=== PATIENT | male | born 1930 | race Caucasian/White ===

== ENCOUNTER 2016-03-10 12:13 | Inpatient (IN) | payer MEDICARE ==
[2016-03-10] MEDS ORDERED: IPRATROPIUM-ALBUTEROL 3 ML NEB INHALATION STA (12:34)
--- NOTE | 2016-03-10 12:37 | ED ---
SOB HPI - General Chief Complaint: Shortness of Breath Stated Complaint: SOB Time Seen by Provider: 03/10/16 12:25 Source: patient, RN notes reviewed Mode of arrival: wheelchair - History of Present Illness Initial Comments: This is a 5-year-old male with a history of multiple medical problems which do not however include COPD or lung issues who was brought in for evaluation for progressively worsening shortness of breath over last couple weeks. 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 While at rest right now he feels about normal he denies any history of peripheral edema he has no known history to toxic exposures. MD Complaint: shortness of breath, cough - Related Data Home Medications Medication Instructions Recorded Confirmed Calcium Carbonate [Calcium] 1,200 mg PO DAILY 10/05/15 03/10/16 Carvedilol [Coreg] 12.5 mg PO BID 10/05/15 03/10/16 Cholecalciferol [Vitamin D3] 2,000 unit PO DAILY 10/05/15 03/10/16 Levothyroxine Sodium [Synthroid] 75 mcg PO DAILY 10/05/15 03/10/16 Lisinopril [Zestril] 2.5 mg PO DAILY 10/05/15 03/10/16 Lovastatin [Mevacor] 20 mg PO HS 10/05/15 03/10/16 Lutein 10 mg PO DAILY 10/05/15 03/10/16 Multivitamins, Thera [Multivitamin] 1 tab PO DAILY 10/05/15 03/10/16 Ubidecarenone [Co Q-10] 400 mg PO DAILY 10/05/15 03/10/16 Vit C/E/Zn/Coppr/Lutein/Zeaxan 2 cap PO DAILY 10/05/15 03/10/16 [Preservision Areds 2 Softgel] Acetaminophen Tab [Tylenol Tab] 325 - 650 mg PO Q6H PRN 03/10/16 03/10/16 Donepezil [Aricept] 10 mg PO DAILY 03/10/16 03/10/16 Ferrous Sulfate [Feosol] 325 mg PO DAILY 03/10/16 03/10/16 Previous Rx's Medication Instructions Recorded Omeprazole 20 mg PO DAILY #30 cap 10/07/15 Allergies Allergy/AdvReac Type Severity Reaction Status Date / Time No Known Allergies Allergy Verified 03/10/16 13:23 Review of Systems ROS Statement: Those systems with pertinent positive or pertinent negative responses have been documented in the HPI. ROS Other: All systems not noted in ROS Statement are negative. Past Medical History Past Medical History: Atrial Fibrillation, Cancer, Chest Pain / Angina, GERD/ Reflux, Hyperlipidemia, Memory Impairment, Osteoarthritis (OA), Pneumonia, Thyroid Disorder Additional Past Medical History / Comment(s): Bladder CA- BCG tx given, prostate cancer 2005-radiation only, History of Any Multi-Drug Resistant Organisms: None Reported Past Surgical History: Bowel Resection, Heart Catheterization, Hernia Repair, Pacemaker Additional Past Surgical History / Comment(s): 2011 umbilical hernia repair, cataracts,ann inguinal hernia repair.macular hole repair, lt hip repalced, colonoscopy, rt knee replaced 2010. Past Anesthesia/Blood Transfusion Reactions: No Reported Reaction Additional Past Anesthesia/Blood Transfusion Reaction / Comment(s): blood transfusion 2011-no reaction Type of Cardiac Device: Permanent Pacemaker Device Placement Date:: 2012 Past Psychological History: Depression Additional Psychological History / Comment(s): occ mild depression but currently denies any depression or thoughts of harming self. Smoking Status: Never smoker Past Alcohol Use History: Occasional Past Drug Use History: None Reported - Past Family History Father Family Medical History: Cancer Additional Family Medical History / Comment(s): bladder cancer.lived to be age 94 Mother Family Medical History: Dementia Additional Family Medical History / Comment(s): lived to be 97 General Exam - General Exam Comments Initial Comments: This is a well-developed well-nourished awake alert oriented times 3 male General appearance: alert, in no apparent distress Head exam: Present: atraumatic, normocephalic, normal inspection Eye exam: Present: normal appearance, PERRL, EOMI. Absent: scleral icterus, conjunctival injection, periorbital swelling ENT exam: Present: normal exam, mucous membranes moist Neck exam: Present: normal inspection. Absent: tenderness, meningismus, lymphadenopathy Respiratory exam: Present: decreased breath sounds. Absent: respiratory distress, wheezes, rales, rhonchi, stridor Cardiovascular Exam: Present: regular rate, normal rhythm, normal heart sounds. Absent: systolic murmur, diastolic murmur, rubs, gallop, clicks GI/Abdominal exam: Present: soft, normal bowel sounds. Absent: distended, tenderness, guarding, rebound, rigid Extremities exam: Present: full ROM, normal capillary refill, pedal edema. Absent: tenderness, joint swelling, calf tenderness Back exam: Present: normal inspection Neurological exam: Present: alert, oriented X3, CN II-XII intact Psychiatric exam: Present: normal affect, normal mood Skin exam: Present: warm, dry, intact, normal color. Absent: rash Course Vital Signs 03/10/16 03/10/16 03/10/16 12:16 12:45 12:50 Temperature 97.1 F L Pulse Rate 92 76 81 Respiratory 20 16 Rate Blood Pressure 125/80 111/68 O2 Sat by Pulse 92 L 93 L Oximetry 03/10/16 03/10/16 03/10/16 12:54 13:53 14:19 Temperature 97.3 F L 97.8 F Pulse Rate 80 79 77 Respiratory 16 16 Rate Blood Pressure 122/78 111/62 O2 Sat by Pulse 89 L 93 L Oximetry 03/10/16 14:45 Temperature Pulse Rate 72 Respiratory 16 Rate Blood Pressure 107/72 O2 Sat by Pulse 92 L Oximetry - Reevaluation(s) Reevaluation #1: 03/10/16 16:21 I did reevaluate the patient did get some improvement. Reevaluation #2: 03/10/16 16:22 I did discuss findings with the patient has . He is demonstrating some improvement Medical Decision Making - Medical Decision Making I did discuss the findings with the patient has patient will be admitted I did discuss case with the hospitalist covering his doctor. Cardiology will be consulted. - Lab Data Result diagrams: 03/10/16 12:50 03/10/16 12:50 Lab Results 03/10/16 03/10/16 03/10/16 Range/Units 12:50 12:50 12:50 WBC 8.2 (3.8-10.6) k/uL RBC 4.67 (4.30-5.90) m/uL Hgb 13.4 (13.0-17.5) gm/dL Hct 42.5 (39.0-53.0) % MCV 90.9 (80.0-100.0) fL MCH 28.6 (25.0-35.0) pg MCHC 31.5 (31.0-37.0) g/dL RDW 17.5 H (11.5-15.5) % Plt Count 246 (150-450) k/uL Neutrophils % 77 % Lymphocytes % 14 % Monocytes % 6 % Eosinophils % 1 % Basophils % 1 % Neutrophils # 6.3 (1.3-7.7) k/uL Lymphocytes # 1.1 (1.0-4.8) k/uL Monocytes # 0.5 (0-1.0) k/uL Eosinophils # 0.0 (0-0.7) k/uL Basophils # 0.0 (0-0.2) k/uL Anisocytosis Slight PT (9.0-12.0) sec INR (<1.1) APTT (22.0-30.0) sec D-Dimer (<0.60) mg/L FEU Sodium 143 (137-145) mmol/L Potassium 5.1 (3.5-5.1) mmol/L Chloride 106 (98-107) mmol/L Carbon Dioxide 25 (22-30) mmol/L Anion Gap 12 mmol/L BUN 27 H (9-20) mg/dL Creatinine 1.00 (0.66-1.25) mg/dL Est GFR (MDRD) Af Amer >60 (>60 ml/min/1.73 sqM) Est GFR (MDRD) Non-Af >60 (>60 ml/min/1.73 sqM) Glucose 99 (74-99) mg/dL Calcium 9.5 (8.4-10.2) mg/dL Magnesium 2.0 (1.6-2.3) mg/dL Total Bilirubin 0.7 (0.2-1.3) mg/dL AST 27 (17-59) U/L ALT 33 (21-72) U/L Alkaline Phosphatase 54 (38-126) U/L Total Creatine Kinase 45 L (55-170) U/L CK-MB (CK-2) 1.4 (0.0-2.4) ng/mL CK-MB (CK-2) Rel Index 3.1 Troponin I 0.017 (0.000-0.034) ng/mL NT-Pro-B Natriuret Pep pg/mL Total Protein 7.4 (6.3-8.2) g/dL Albumin 4.4 (3.5-5.0) g/dL 03/10/16 03/10/16 Range/Units 12:50 12:50 WBC (3.8-10.6) k/uL RBC (4.30-5.90) m/uL Hgb (13.0-17.5) gm/dL Hct (39.0-53.0) % MCV (80.0-100.0) fL MCH (25.0-35.0) pg MCHC (31.0-37.0) g/dL RDW (11.5-15.5) % Plt Count (150-450) k/uL Neutrophils % % Lymphocytes % % Monocytes % % Eosinophils % % Basophils % % Neutrophils # (1.3-7.7) k/uL Lymphocytes # (1.0-4.8) k/uL Monocytes # (0-1.0) k/uL Eosinophils # (0-0.7) k/uL Basophils # (0-0.2) k/uL Anisocytosis PT 11.0 (9.0-12.0) sec INR 1.1 (<1.1) APTT 24.3 (22.0-30.0) sec D-Dimer 0.65 H (<0.60) mg/L FEU Sodium (137-145) mmol/L Potassium (3.5-5.1) mmol/L Chloride (98-107) mmol/L Carbon Dioxide (22-30) mmol/L Anion Gap mmol/L BUN (9-20) mg/dL Creatinine (0.66-1.25) mg/dL Est GFR (MDRD) Af Amer (>60 ml/min/1.73 sqM) Est GFR (MDRD) Non-Af (>60 ml/min/1.73 sqM) Glucose (74-99) mg/dL Calcium (8.4-10.2) mg/dL Magnesium (1.6-2.3) mg/dL Total Bilirubin (0.2-1.3) mg/dL AST (17-59) U/L ALT (21-72) U/L Alkaline Phosphatase (38-126) U/L Total Creatine Kinase (55-170) U/L CK-MB (CK-2) (0.0-2.4) ng/mL CK-MB (CK-2) Rel Index Troponin I (0.000-0.034) ng/mL NT-Pro-B Natriuret Pep 7450 pg/mL Total Protein (6.3-8.2) g/dL Albumin (3.5-5.0) g/dL - EKG Data -: EKG Interpreted by Me (Pacer rhythm of 77 ND interval to 16 QRS duration of 202 daily since QTC of) - Radiology Data Radiology results: report reviewed (I did review the imaging and report or is evidence cardiomegaly and CHF.), image reviewed Critical Care Time Critical Care Time: Yes Critical Care Time: 32 minutes of critical care time which includes initial encounter with history physical lab and x-ray orders reevaluation the patient response to therapy reevaluation of lab and x-ray results. Discussion with the patient has regarding findings discussion with the admitting physician. Admission orders and documentation of the above. Disposition Clinical Impression: Congestive heart failure, Acute exacerbation of chronic obstructive airways disease Disposition: ADMITTED IP TO THIS HOSP Condition: Stable
[2016-03-10 13:15] LABS: Anisocytosis Slight; Basophils % (A) 1 %; CH 28.7; CHCM 31.8; Eosinophils % (A) 1 %; HCT 42.5 % (39.0-53.0); HDW 2.57; HGB 13.4 gm/dL (13.0-17.5); Luc # (Auto) 0.16; Luc % (Auto) 2; Lymphocytes # (A) 1.1 k/uL (1.0-4.8); Lymphocytes % (A) 14 %; MCH 28.6 pg (25.0-35.0); MCHC 31.5 g/dL (31.0-37.0); MCV 90.9 fL (80.0-100.0); Mean Platelet Volume 9.2; Monocytes # (A) 0.5 k/uL (0-1.0); Monocytes % (A) 6 %; Neutrophils # (A) 6.3 k/uL (1.3-7.7); Neutrophils % (A) 77 %; RBC 4.67 m/uL (4.30-5.90); RDW 17.5 % (11.5-15.5); WBC 8.2 k/uL (3.8-10.6); WBC (Perox) 8.02
[2016-03-10 13:16] LABS: ALT 33 U/L (21-72); AST 27 U/L (17-59); Alkaline Phosphatase 54 U/L (38-126); Anion Gap 12 mmol/L; Blood Urea Nitrogen 27 mg/dL (9-20); Calcium 9.5 mg/dL (8.4-10.2); Carbon Dioxide 25 mmol/L (22-30); Chloride 106 mmol/L (98-107); Glucose 99 mg/dL (74-99); Non-African American GFR(MDRD) >60 (>60 ml/min/1.73 sqM); Potassium 5.1 mmol/L (3.5-5.1); Sodium 143 mmol/L (137-145); Total Bilirubin 0.7 mg/dL (0.2-1.3); Total Protein 7.4 g/dL (6.3-8.2)
[2016-03-10 13:20] LABS: INR 1.1 (<1.1); Partial Thromboplastin Time 24.3 sec (22.0-30.0)
--- NOTE | 2016-03-10 13:25 | XR ---
EXAMINATION TYPE: XR chest 2V DATE OF EXAM: 03/10/2016 1:17 PM COMPARISON: Prior chest x-ray November 18, 2012 HISTORY: Shortness of breath TECHNIQUE: Frontal and lateral views of the chest are obtained. FINDINGS: There is background of chronic emphysematous change. There is persistent cardiomegaly with new dual lead pacemaker with leads in right atrium and right ventricle. There is new moderate central vascular congestion and small bilateral pleural effusions. There is associated bibasilar atelectasis and/or infiltrate. There is atherosclerotic and ectatic thoracic aorta redemonstrated. Osseous struc tures are somewhat demineralized. IMPRESSION: Suspect CHF exacerbation as there is cardiomegaly with new mild to moderate central vasc ular congestion and small bilateral pleural effusions now present..
[2016-03-10 13:48] LABS: Creatine Kinase MB 1.4 ng/mL (0.0-2.4); Troponin I 0.017 ng/mL (0.000-0.034)
[2016-03-10] MEDS ORDERED: FUROSEMIDE 10 MG/ML 4 ML VIAL IV STA (14:18)
[2016-03-10] MEDS: SODIUM CHLORIDE 0.9% 1,000 ML IV SCH (18:01)
[2016-03-10] MEDS ORDERED: ALPRAZolam 0.25 MG TAB PO PRN (18:52)
[2016-03-10] MEDS ORDERED: HYDROcodone/APAP 5-325MG 1 EACH TAB PO PRN (18:52)
[2016-03-10] MEDS ORDERED: ACETAMINOPHEN TAB 325 MG TAB PO PRN (18:53)
[2016-03-10] MEDS: CARVEDILOL 12.5 MG TAB PO SCH (18:58)
[2016-03-10 20:18] LABS: Appearance,Urine Clear (Clear); Bilirubin,Urine Negative (Negative); Glucose,Urine (UA) Negative (Negative); Ketones,Urine Negative (Negative); Leukocyte Esterase,Urine Negative (Negative); Mucus,Urine Rare /hpf; Nitrite,Urine Negative (Negative); Particle Count 502; Protein,Urine Negative (Negative); RBC,Urine 39 /hpf (0-5); Specific Gravity,Urine 1.004 (1.001-1.035); UA Billing (MACRO vs. MICRO) MICRO; Urobilinogen,Urine <2.0 mg/dL (<2.0); WBC,Urine 1 /hpf (0-5)
--- NOTE | 2016-03-10 21:40 | HP ---
DATE OF ADMISSION: 03/10/2016 CHIEF COMPLAINT: Shortness of breath. HISTORY OF PRESENT ILLNESS: This 85-year-old gentleman with a past medical history of multiple medical problems, including atrial fibrillation, history of chest pain, history of GERD, hyperlipidemia, history of memory impairment, history of DJD, history of pneumonia, history of hypothyroidism, history of bladder cancer, history of cardiac catheterization, history of pacemaker, history of depression being followed by Dr. Spivey in the outpatient setting was admitted with shortness of breath. The patient had noticed shortness of breath worsening since this morning. The shortness of breath has been ongoing for the last 1 week at least. Patient has no history of any cough. No history of any headache, loss of consciousness. The heart rate was elevated and the patient had some sweats this morning and the patient came to [facility], admitted for further evaluation and treatment. Further evaluation showed evidence of CHF acute exacerbation on chest x-ray and Cardiology evaluation in progress. Small bilateral pleural effusion also noted. There is no history of any fever, rigors or chills. PAST MEDICAL HISTORY: History of atrial fibrillation, history of chest pain, history of GERD, hypertension, hyperlipidemia, history of memory impairment, history of pneumonia, bladder cancer, history of cardiac catheterization and bowel obstruction, history of depression. Medications prior to admission include home medications are: 1. Tylenol 325 mg every 6 hours p.r.n. 2. Aspirin 320 mg daily. 3. Vitamin C 2 capsules a day. 4. Coenzyme Q 400 mg daily. 5. Lutein 10 mg p.o. daily. 6. Vitamin D3 2000 units. 7. Calcium 1200 mg p.o. daily. 8. Multivitamin 1 p.o. daily. 9. Pravachol 20 mg q.h.s. 10. Zestril 2.5 mg. 11. Synthroid 75 mcg p.o. daily. 12. Aricept 10 mg daily. 13. Omeprazole 20 mg p.o. daily. 14. Coreg 12.5 mg p.o. b.i.d. Allergies are none. FAMILY HISTORY: History of cancer, bladder cancer in the family. SOCIAL HISTORY: History of alcohol. No history of smoking. REVIEW OF SYSTEMS: ENT: Diminished hearing, diminished vision. CARDIOVASCULAR: As mentioned earlier. RESPIRATORY: As mentioned earlier. GI: No nausea. : As mentioned earlier. NERVOUS: No numbness or weakness. ALLERGY/IMMUNOLOGY: No asthma or hay fever. MUSCULOSKELETAL: As mentioned earlier. HEMATOLOGY/ONCOLOGY: No history of anemia. ENDOCRINE: Hypothyroidism. CONSTITUTIONAL: As mentioned earlier. DERMATOLOGY: As mentioned earlier. RHEUMATOLOGY: Negative. PSYCHIATRY: As mentioned earlier. PHYSICAL EXAM: The patient is alert and oriented x3. Pulse 69, blood pressure 11/73, respirations 16, temperature 96.9, pulse ox 93% on 2L. HEENT: Conjunctivae normal. Oral mucosa moist. NECK: No jugular venous distension, carotid bruits. No lymph node enlargement. CARDIOVASCULAR: S1 and S2 muffled. No S3. No S4. RESPIRATORY: Breath sounds diminished in the bases. A few scattered rhonchi. No crackles. Abdomen is soft, nontender. No masses palpable. LEGS: Bilateral leg edema. NERVOUS SYSTEM: Higher functions as mentioned. Moves all 4 limbs . Cranial nerves normal. No focal motor or sensory deficits. LYMPHATIC: No lymph nodes in neck, axillae or groins. SKIN: NO ulcer, rash or bleeding. Labs are CBC within normal limits. Amylase 0.65. Otherwise, other labs are noted. The chest x-ray reviewed which showed CHF. ASSESSMENT: 1. Congestive heart failure acute exacerbation with ejection fraction unknown. 2. History of atrial fibrillation. 3. History of chest pain, angina. 4. History of gastroesophageal reflux disease. 5. Hyperlipidemia. 6. Dementia. 7. History of degenerative joint disease. 8. History of pneumonia. 9. History of bladder cancer. 10. History of prostate cancer. 11. History of cardiac catheterization. 12. History of umbilical hernia repair. 13. History of depression. 14. FULL CODE. RECOMMENDATIONS AND DISCUSSION: In this 85-year-old gentleman who presented with multiple complex medical issues, we will monitor the patient closely. Continue the current medications. Continue symptomatic treatment. Patient already received 1 dose of Lasix and he is started on Lasix 40 mg IV b.i.d. We will monitor the patient closely fluid- electrolyte balance, sodium, limited sodium diet. Cardiology consultation and 2-D echo with Doppler. Otherwise, we will follow the patient closely. Prognosis guarded. Further recommendations to follow. A copy of this dictation will be sent to Dr. Spivey, who is the primary care physician. OLESYA
[2016-03-10] MEDS: FUROSEMIDE 10 MG/ML 4 ML VIAL IV SCH (21:44)
[2016-03-10] MEDS: ATORVASTATIN 10 MG TAB PO SCH (21:45)
[2016-03-10] MEDS: HEPARIN SODIUM,PORCINE 5,000 UNIT/ML 1 ML VIAL SQ SCH (21:47)
[2016-03-10] MEDS: MELATONIN 3 MG TABLET PO SCH (21:47)
[2016-03-11 00:51] VITALS: RESP 18
[2016-03-11 02:47] LABS: Anisocytosis Slight; Basophils # (A) 0.1 k/uL (0-0.2); Basophils % (A) 1 %; CH 28.1; CHCM 31.3; Eosinophils # (A) 0.1 k/uL (0-0.7); Eosinophils % (A) 2 %; HCT 38.7 % (39.0-53.0); HDW 2.47; HGB 12.1 gm/dL (13.0-17.5); Hypochromasia Slight; Luc % (Auto) 3; Lymphocytes # (A) 1.5 k/uL (1.0-4.8); Lymphocytes % (A) 24 %; MCH 28.3 pg (25.0-35.0); MCHC 31.4 g/dL (31.0-37.0); MCV 90.4 fL (80.0-100.0); Mean Platelet Volume 8.1; Monocytes # (A) 0.5 k/uL (0-1.0); Monocytes % (A) 7 %; Neutrophils % (A) 63 %; RBC 4.29 m/uL (4.30-5.90); RDW 17.4 % (11.5-15.5); WBC 6.4 k/uL (3.8-10.6); WBC (Perox) 6.89
[2016-03-11 02:52] LABS: Anion Gap 10 mmol/L; Blood Urea Nitrogen 28 mg/dL (9-20); Calcium 9.1 mg/dL (8.4-10.2); Carbon Dioxide 26 mmol/L (22-30); Chloride 106 mmol/L (98-107); Glucose 101 mg/dL (74-99); Non-African American GFR(MDRD) 57 (>60 ml/min/1.73 sqM); Potassium 4.1 mmol/L (3.5-5.1); Sodium 142 mmol/L (137-145)
[2016-03-11] MEDS: LEVOTHYROXINE 75 MCG TAB PO SCH (06:40)
[2016-03-11] MEDS: CARVEDILOL 12.5 MG TAB PO SCH ×2 (06:40→17:37)
[2016-03-11] MEDS: PANTOPRAZOLE 40 MG TABLET PO SCH (06:40)
[2016-03-11] MEDS: FUROSEMIDE 10 MG/ML 4 ML VIAL IV SCH ×2 (08:58→21:30)
[2016-03-11] MEDS: DONEPEZIL 10 MG TAB PO SCH (08:58)
[2016-03-11] MEDS: HEPARIN SODIUM,PORCINE 5,000 UNIT/ML 1 ML VIAL SQ SCH ×2 (08:58→21:30)
[2016-03-11] MEDS ORDERED: NON-FORMULARY DRUG (Lutein [Lutein] 10 MG) PO SCH (09:00)
[2016-03-11] MEDS ORDERED: NON-FORMULARY DRUG (Ubidecarenone [Co Q-10] 400 MG) PO SCH (09:00)
[2016-03-11] MEDS ORDERED: LISINOPRIL 2.5 MG TAB PO SCH (09:00)
--- NOTE | 2016-03-11 09:16 | P.CRDCN ---
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 fib with no prior history of CAD presented to the hospital complaining of shortness of breath. He was in his usual state of health until about 2 days ago when he started experiencing shortness of breath with exertion. He had no orthopnea. He had no bilateral lower extremities edema. He had no chest pain or chest discomfort. The chest x-ray showed findings consistent was congestive heart failure exacerbation. The EKG showed dual chamber pacing. The patient was started on Lasix IV and on follow-up with him today he is doing already better. The patient had no previous medical records here and we don't have any idea about the left ventricle systolic function. I will continue the current medical treatment with Lasix IV. Continue monitor the blood pressure. Obtain an echocardiogram was Doppler. Past Medical History Past Medical History: Atrial Fibrillation, Cancer, Chest Pain / Angina, GERD/ Reflux, GI Bleed, Hyperlipidemia, Memory Impairment, Osteoarthritis (OA), Pneumonia, Thyroid Disorder Additional Past Medical History / Comment(s): Bladder CA- BCG tx given, prostate cancer 2006-radiation only,incont of urine-wears a pull up, per past hx -antral ulcer?from nsaid use.murmur, sinus problems, anemia in past.some forgetfulness History of Any Multi-Drug Resistant Organisms: None Reported Past Surgical History: Bowel Resection, Heart Catheterization, Hernia Repair, Pacemaker Additional Past Surgical History / Comment(s): 2012 umbilical hernia repair, cataracts,ann inguinal hernia repair.macular hole repair, lt hip repalced, colonoscopy, rt knee replaced 2010. Past Anesthesia/Blood Transfusion Reactions: No Reported Reaction Additional Past Anesthesia/Blood Transfusion Reaction / Comment(s): blood transfusion 2011-no reaction Type of Cardiac Device: Permanent Pacemaker Device Placement Date:: 2012 Past Psychological History: Depression Additional Psychological History / Comment(s): occ mild depression but currently denies any depression or thoughts of harming self. Smoking Status: Never smoker Past Alcohol Use History: Occasional Past Drug Use History: None Reported - Past Family History Father Family Medical History: Cancer Additional Family Medical History / Comment(s): bladder cancer.lived to be age 94 Mother Family Medical History: Dementia Additional Family Medical History / Comment(s): lived to be Medications and Allergies Home Medications Medication Instructions Recorded Confirmed Type Calcium Carbonate [Calcium] 1,200 mg PO DAILY 10/05/15 03/10/16 History Carvedilol [Coreg] 12.5 mg PO BID 10/05/15 03/10/16 History Cholecalciferol [Vitamin D3] 2,000 unit PO DAILY 10/05/15 03/10/16 History Levothyroxine Sodium [Synthroid] 75 mcg PO DAILY 10/05/15 03/10/16 History Lisinopril [Zestril] 2.5 mg PO DAILY 10/05/15 03/10/16 History Lovastatin [Mevacor] 20 mg PO HS 10/05/15 03/10/16 History Lutein 10 mg PO DAILY 10/05/15 03/10/16 History Multivitamins, Thera [Multivitamin] 1 tab PO DAILY 10/05/15 03/10/16 History Ubidecarenone [Co Q-10] 400 mg PO DAILY 10/05/15 03/10/16 History Vit C/E/Zn/Coppr/Lutein/Zeaxan 2 cap PO DAILY 10/05/15 03/10/16 History [Preservision Areds 2 Softgel] Acetaminophen Tab [Tylenol Tab] 325 - 650 mg PO Q6H PRN 03/10/16 03/10/16 History Donepezil [Aricept] 10 mg PO DAILY 03/10/16 03/10/16 History Ferrous Sulfate [Feosol] 325 mg PO DAILY 03/10/16 03/10/16 History Allergies Allergy/AdvReac Type Severity Reaction Status Date / Time No Known Allergies Allergy Verified 03/10/16 13:23 Physical Exam Vitals: Vital Signs Temp Pulse Pulse Pulse Resp BP BP 03/11/16 08:00 96.9 F L 81 89/56 03/11/16 03:33 97.5 F L 118 H 18 90/60 03/11/16 00:00 97.7 F 90 18 82/50 03/10/16 20:00 97.7 F 115 H 18 97/73 03/10/16 18:32 97.6 F 74 16 128/88 03/10/16 17:45 96.9 F L 69 16 111/73 03/10/16 17:35 96.8 F L 82 18 121/80 Pulse Ox 03/11/16 08:00 92 L 03/11/16 03:33 94 L 03/11/16 00:00 92 L 03/10/16 20:00 93 L 03/10/16 18:32 96 03/10/16 17:45 93 L 03/10/16 17:35 94 L Intake and Output 03/10/16 03/11/16 03/11/16 22:59 06:59 14:59 Intake Total 180 Output Total 725 550 Balance -725 -550 180 Intake: Oral 180 Output: Urine 725 550 Other: Voiding Method Toilet Toilet Urinal Urinal # Voids 1 Weight 87 kg - Constitutional General appearance: no acute distress - Respiratory Respiratory: bilateral: rales - Cardiovascular Rhythm: regular Heart sounds: normal: S1, S2 Results 03/11/16 02:25 03/11/16 02:25 Cardiac Enzymes 03/10/16 03/11/16 Range/Units 19:03 02:25 Troponin I 0.017 0.017 (0.000-0.034) ng/mL CBC 03/11/16 Range/Units 02:25 WBC 6.4 (3.8-10.6) k/uL RBC 4.29 L (4.30-5.90) m/uL Hgb 12.1 L (13.0-17.5) gm/dL Hct 38.7 L (39.0-53.0) % Plt Count 225 (150-450) k/uL Comprehensive Metabolic Panel 03/11/16 Range/Units 02:25 Sodium 142 (137-145) mmol/L Potassium 4.1 (3.5-5.1) mmol/L Chloride 106 (98-107) mmol/L Carbon Dioxide 26 (22-30) mmol/L BUN 28 H (9-20) mg/dL Creatinine 1.20 (0.66-1.25) mg/dL Glucose 101 H (74-99) mg/dL Calcium 9.1 (8.4-10.2) mg/dL Current Medications Generic Name Dose Route Start Last Admin Trade Name Freq PRN Reason Stop Dose Admin Acetaminophen 650 mg 03/10/16 18:53 Tylenol Tab PO Q6H PRN Pain Acetaminophen/Hydrocodone Bitart 1 each 03/10/16 18:52 Nedrow 5-325 PO Q6HR PRN Pain Alprazolam 0.25 mg 03/10/16 18:52 Xanax PO TID PRN Anxiety Atorvastatin Calcium 10 mg 03/10/16 21:00 03/10/16 21:45 Lipitor PO 10 mg HS [facility] Administration Calcium Carbonate/Glycine 1,000 mg 03/11/16 12:00 Tums PO 1200 [facility] Carvedilol 12.5 mg 03/10/16 17:30 03/11/16 06:40 Coreg PO 12.5 mg BID-W/MEALS [facility] Administration Cholecalciferol 2,000 unit 03/11/16 12:00 Vitamin D3 PO 1200 [facility] Donepezil HCl 10 mg 03/11/16 09:00 03/11/16 08:58 Aricept PO 10 mg DAILY [facility] Administration Ferrous Sulfate 325 mg 03/11/16 12:00 Feosol PO 1200 [facility] Furosemide 40 mg 03/10/16 21:00 03/11/16 08:58 Lasix IV 40 mg Q12HR [facility] Administration Heparin Sodium (Porcine) 5,000 unit 03/10/16 21:00 03/11/16 08:58 Heparin SQ 5,000 unit Q12HR [facility] Administration Sodium Chloride 1,000 mls @ 20 mls/hr 03/10/16 16:30 03/10/16 18:01 Saline 0.9% IV Not Given .Q24H [facility] Levothyroxine Sodium 75 mcg 03/11/16 06:30 03/11/16 06:40 Synthroid PO 75 mcg 0630 [facility] Administration Lisinopril 2.5 mg 03/11/16 09:00 Zestril PO DAILY [facility] Melatonin 3 mg 03/10/16 21:00 03/10/16 21:47 Melatonin PO 3 mg HS [facility] Administration Multivitamins 1 each 03/11/16 12:00 Theragran PO 1200 [facility] Multivitamins/Minerals 2 each 03/11/16 12:00 Ivite PO 1200 [facility] Pantoprazole Sodium 40 mg 03/11/16 07:30 03/11/16 06:40 Protonix PO 40 mg [id number]-[id number] [facility] Administration Intake and Output 03/10/16 03/11/16 03/11/16 22:59 06:59 14:59 Intake Total 180 Output Total 725 550 Balance -725 -550 180 Intake: Oral 180 Output: Urine 722 550 Other: Voiding Method Toilet Toilet Urinal Urinal # Voids 1 Weight 87 kg 03/11/16 02:25 03/11/16 02:25 Assessment and Plan Plan: Assessment #1 congestive heart failure exacerbation and known if it is due to systolic or diastolic dysfunction #2 status post permanent pacemaker implantation #3 underlying dementia Plan #1 continue the current medical treatment with Lasix IV #2 continue monitor the kidney function and electrolytes #3 obtain an echocardiogram with Doppler #4 follow-up the patient
[2016-03-11] MEDS: FERROUS SULFATE 325 MG TAB PO SCH (12:40)
[2016-03-11] MEDS: VIT A,C & E-LUTEIN-MINERALS 1 EACH TAB PO SCH (12:40)
[2016-03-11] MEDS: CHOLECALCIFEROL 1,000 UNIT TAB PO SCH (12:40)
[2016-03-11] MEDS: CALCIUM CARBONATE 500 MG CHEWABLE PO SCH (12:40)
[2016-03-11] MEDS: MULTIVITAMINS, THERA 1 EACH TAB PO SCH (12:40)
--- NOTE | 2016-03-11 15:33 | ECHOF ---
Referral Reason:chf MEASUREMENTS -------- HEIGHT: 182.9 cm WEIGHT: 86.6 kg BP: IVSd: 0.8 cm (0.6 - 1.1) LVIDd: 5.4 cm (3.9 - 5.3) LVPWd: 0.8 cm (0.6 - 1.1) IVSs: 0.9 cm LVIDs: 5.1 cm LVPWs: 1.2 cm LA Diam: 3.4 cm (2.7 - 3.8) LAESV Index (A-L): 36.78 ml/m Ao Diam: 3.7 cm (2.0 - 3.7) AV Cusp: 1.5 cm (1.5 - 2.6) LA Diam: 4.5 cm (2.7 - 3.8) MV EXCURSION: 11.714 mm (> 18.000) MV EF SLOPE: 58 mm/s (70 - 150) EPSS: 3.0 cm MV E Arnie: 0.69 m/s MV DecT: 150 ms MV A Arnie: 0.23 m/s MV E/A Ratio: 2.97 AR PHT: 513 ms RAP: 5.00 mmHg RVSP: 33.22 mmHg FINDINGS -------- Paced rhythm. This was a technically good study. Left ventricular wall thickness is normal. There is moderate global hypokinesis of LV . Overall left ventricular systolic function is severely impaired with, an EF between 20 - 25 %. The right ventricle is normal in size. LA is moderately dilated 34-39 ml/m2 The right atrial size is normal. There is mild aortic valve sclerosis. There is zlvk-lh-wzxpwwyr aortic regurgitation. Mild mitral annular calcification present. Vsqk-eb-nxfttszu mitral regurgitation is present. Mild tricuspid regurgitation present. There is no evidence of pulmonary hypertension. The right ventricular systolic pressure, as measured by Doppler, is 33.22mmHg. There is no pulmonic regurgitation present. The aortic root size is normal. There is no pericardial effusion. CONCLUSIONS -------- 1. Left ventricular wall thickness is normal. 2. There is no evidence of pulmonary hypertension. 3. The right ventricular systolic pressure, as measured by Doppler, is 33.22mmHg. 4. There is moderate global hypokinesis of LV . 5. Overall left ventricular systolic function is severely impaired with, an EF between 20 - 25 %. 6. LA is moderately dilated 34-39 ml/m2 7. There is mild aortic valve sclerosis. 8. There is agka-oe-lcideygy aortic regurgitation. 9. Mild mitral annular calcification present. 10. Ftcy-zo-zigicnhf mitral regurgitation is present. 11. Mild tricuspid regurgitation present. TECHNICAL OPERATOR: Madeleine Elkins RDCS
[2016-03-11] MEDS: SODIUM CHLORIDE 0.9% 1,000 ML IV SCH (17:36)
[2016-03-11] MEDS: ATORVASTATIN 10 MG TAB PO SCH (21:30)
[2016-03-11] MEDS: MELATONIN 3 MG TABLET PO SCH (23:10)
[2016-03-12] MEDS: CARVEDILOL 12.5 MG TAB PO SCH (06:51)
[2016-03-12] MEDS: PANTOPRAZOLE 40 MG TABLET PO SCH (06:51)
[2016-03-12] MEDS: LEVOTHYROXINE 75 MCG TAB PO SCH (06:51)
[2016-03-12 07:02] LABS: Anisocytosis Slight; Basophils # (A) 0.1 k/uL (0-0.2); Basophils % (A) 1 %; CH 28.2; CHCM 31.2; Eosinophils # (A) 0.2 k/uL (0-0.7); Eosinophils % (A) 3 %; HCT 41.7 % (39.0-53.0); HDW 2.41; HGB 12.9 gm/dL (13.0-17.5); Hypochromasia Slight; Luc # (Auto) 0.22; Luc % (Auto) 3; Lymphocytes % (A) 30 %; MCHC 30.9 g/dL (31.0-37.0); MCV 90.9 fL (80.0-100.0); Mean Platelet Volume 8.3; Monocytes # (A) 0.5 k/uL (0-1.0); Monocytes % (A) 7 %; Neutrophils # (A) 3.7 k/uL (1.3-7.7); Neutrophils % (A) 56 %; RBC 4.59 m/uL (4.30-5.90); RDW 17.2 % (11.5-15.5); WBC 6.6 k/uL (3.8-10.6); WBC (Perox) 6.76
[2016-03-12 07:03] LABS: Anion Gap 12 mmol/L; Blood Urea Nitrogen 27 mg/dL (9-20); Carbon Dioxide 30 mmol/L (22-30); Chloride 101 mmol/L (98-107); Glucose 93 mg/dL (74-99); Non-African American GFR(MDRD) >60 (>60 ml/min/1.73 sqM); Sodium 143 mmol/L (137-145)
[2016-03-12] MEDS: HEPARIN SODIUM,PORCINE 5,000 UNIT/ML 1 ML VIAL SQ SCH ×2 (09:05→20:53)
[2016-03-12] MEDS: FUROSEMIDE 10 MG/ML 4 ML VIAL IV SCH ×2 (09:05→20:53)
[2016-03-12] MEDS: DONEPEZIL 10 MG TAB PO SCH (09:07)
--- NOTE | 2016-03-12 11:26 | PN ---
DATE OF SERVICE: 03/11/2016 This 85-year-old gentleman admitted with shortness of breath, CHF acute exacerbation. 2-D echo with Doppler done today showed ejection fraction about 20 to 25% with severe global hypokinesia. Cardiology is following the patient. Patient is on IV diuretics. Patient is feeling much better at this time. The patient also had history of permanent pacemaker. No chest or palpitation. No fever. On exam, alert and oriented x3. Pulse 85, blood pressure 106/72, respirations 18, temperature 96.9, pulse ox 94% on room air. HEENT: Conjunctivae normal. NECK: Jugular venous distention at root of neck. CARDIOVASCULAR: S1 and S2, muffled. No S3, no S4. RESPIRATORY: Breath sounds diminished at the bases. A few scattered rhonchi and crackles. ABDOMEN: Soft, nontender. No mass palpable. LEGS: Minimal edema. NERVOUS SYSTEM: No focal deficits. LABS: Hemoglobin 12.1. ASSESSMENT: 1. Congestive heart failure acute exacerbation with acute on chronic systolic dysfunction, ejection fraction 20 to 25%. 2. Severe cardiomyopathy. 3. Moderate dilated LA. 4. Mild to moderate aortic regurgitation, mild aortic sclerosis, mild to moderate mitral regurgitation and mild tricuspid regurgitation in the 2-D echo. 5. Atrial fibrillation. 6. History of chest pain, angina. 7. History of gastroesophageal reflux disease. 8. Hyperlipidemia. 9. History of dementia. 10. History of degenerative joint disease. 11. History pneumonia. 12. History of bladder cancer. 13. History of prostate cancer. 14. History of cardiac catheterization. 15. History of umbilical hernia repair. 16. History of depression. 17. FULL CODE. RECOMMENDATIONS AND DISCUSSION: In this individual with multiple complex medical issues as mentioned earlier including CHF, I would recommend to continue the current medications, continue with the diuretics, monitor fluid and electrolyte balance closely. Closely follow with Cardiology. Guarded prognosis because of multiple complex medical issues. Discussed with the family who understands. Further recommendations to follow.
[2016-03-12] MEDS: MULTIVITAMINS, THERA 1 EACH TAB PO SCH (12:31)
[2016-03-12] MEDS: CALCIUM CARBONATE 500 MG CHEWABLE PO SCH (12:31)
[2016-03-12] MEDS: CHOLECALCIFEROL 1,000 UNIT TAB PO SCH (12:31)
[2016-03-12] MEDS: VIT A,C & E-LUTEIN-MINERALS 1 EACH TAB PO SCH (12:31)
[2016-03-12] MEDS: FERROUS SULFATE 325 MG TAB PO SCH (12:31)
--- NOTE | 2016-03-12 13:21 | P.PN ---
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 fib with no prior history of CAD presented to the hospital complaining of shortness of breath. He was in his usual state of health until about 2 days ago when he started experiencing shortness of breath with exertion. He had no orthopnea. He had no bilateral lower extremities edema. He had no chest pain or chest discomfort. The chest x-ray showed findings consistent was congestive heart failure exacerbation. The EKG showed dual chamber pacing. The patient was started on Lasix IV. On follow-up with him today, he is feeling better. The shortness of breath has improved significantly and he is able to walk to the bathroom and coming back to his bed without being short of breath. He continues to denies any symptoms of chest pain or chest discomfort. The echocardiogram showed severe cardiomyopathy with an ejection fraction between 25-30%. I am going to continue diuresing the patient using Lasix IV very cautiously in view of the marginally low blood pressure. Continue monitor the kidney function and electrolytes. He is on Coreg. I am going to decrease the dose of Coreg, start the patient on small dose of lisinopril, and start the patient on Aldactone as well. Objective - Vital Signs Vital signs: Vital Signs Temp 97.1 F L 03/12/16 08:00 Pulse 76 03/12/16 08:00 Resp 18 03/12/16 04:00 BP 91/47 03/12/16 08:00 Pulse Ox 94 L 03/12/16 08:00 Intake & Output 03/11/16 03/12/16 03/12/16 18:59 06:59 18:59 Intake Total 400 180 Output Total 350 2750 300 Balance 50 -2750 -120 Weight 82 kg Intake: Oral 400 180 Output: Urine 350 2750 300 Other: Voiding Method Toilet Urinal # Voids 1 1 1 - Constitutional General appearance: Present: no acute distress - Respiratory Respiratory: bilateral: rales - Cardiovascular Rhythm: regular Heart sounds: normal: S1, S2 - Labs CBC & Chem 7: 03/12/16 05:57 03/12/16 05:57 Labs: Abnormal Lab Results - Last 24 Hours (Table) 01/08/17 01/08/17 Range/Units 05:57 05:57 Hgb 12.9 L (13.0-17.5) gm/dL MCHC 30.9 L (31.0-37.0) g/dL RDW 17.2 H (11.5-15.5) % BUN 27 H (9-20) mg/dL Assessment and Plan Plan: Assessment #1 congestive heart failure exacerbation secondary to systolic dysfunction #2 severe cardiomyopathy unknown if it's ischemic or nonischemic #3 status post permanent pacemaker implantation Plan #1 decrease the dose of Coreg in view of the marginally low blood pressure #2 continue diuresing the patient using Lasix IV #3 start the patient on a small dose of lisinopril #4 start the patient on Aldactone as well #5 continue following up with him
[2016-03-12] MEDS: SODIUM CHLORIDE 0.9% 1,000 ML IV SCH (17:25)
[2016-03-12] MEDS: CARVEDILOL 6.25 MG TAB PO SCH (17:26)
[2016-03-12] MEDS: MELATONIN 3 MG TABLET PO SCH (20:53)
[2016-03-12] MEDS: ATORVASTATIN 10 MG TAB PO SCH (20:53)
[2016-03-13 06:16] LABS: Anisocytosis Slight; Basophils # (A) 0.1 k/uL (0-0.2); Basophils % (A) 1 %; CH 28.4; CHCM 31.7; Eosinophils # (A) 0.2 k/uL (0-0.7); Eosinophils % (A) 3 %; HCT 41.2 % (39.0-53.0); HDW 2.45; HGB 13.2 gm/dL (13.0-17.5); Hypochromasia Slight; Luc # (Auto) 0.24; Luc % (Auto) 4; Lymphocytes # (A) 1.6 k/uL (1.0-4.8); Lymphocytes % (A) 27 %; MCH 28.9 pg (25.0-35.0); MCHC 32.1 g/dL (31.0-37.0); MCV 90.2 fL (80.0-100.0); Mean Platelet Volume 8.1; Monocytes # (A) 0.4 k/uL (0-1.0); Monocytes % (A) 7 %; Neutrophils # (A) 3.5 k/uL (1.3-7.7); Neutrophils % (A) 58 %; RBC 4.57 m/uL (4.30-5.90); RDW 17.3 % (11.5-15.5); WBC (Perox) 6.29
[2016-03-13 06:22] LABS: Anion Gap 8 mmol/L; Blood Urea Nitrogen 29 mg/dL (9-20); Calcium 8.9 mg/dL (8.4-10.2); Carbon Dioxide 30 mmol/L (22-30); Chloride 103 mmol/L (98-107); Glucose 92 mg/dL (74-99); Non-African American GFR(MDRD) >60 (>60 ml/min/1.73 sqM); Potassium 3.9 mmol/L (3.5-5.1); Sodium 141 mmol/L (137-145)
[2016-03-13] MEDS: PANTOPRAZOLE 40 MG TABLET PO SCH (06:36)
[2016-03-13] MEDS: LEVOTHYROXINE 75 MCG TAB PO SCH (07:09)
[2016-03-13] MEDS: CARVEDILOL 6.25 MG TAB PO SCH ×2 (07:09→17:45)
[2016-03-13] MEDS: DONEPEZIL 10 MG TAB PO SCH (08:01)
[2016-03-13] MEDS: HEPARIN SODIUM,PORCINE 5,000 UNIT/ML 1 ML VIAL SQ SCH ×2 (08:01→20:19)
[2016-03-13] MEDS: FUROSEMIDE 10 MG/ML 4 ML VIAL IV SCH (08:01)
[2016-03-13] MEDS ORDERED: LISINOPRIL 2.5 MG TAB PO SCH (09:00)
[2016-03-13] MEDS ORDERED: POTASSIUM CHLORIDE ER 20 MEQ TAB.ER PO STA (10:20)
--- NOTE | 2016-03-13 10:29 | P.PN ---
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 neo with no prior history of CAD presented to the hospital complaining of shortness of breath. He was in his usual state of health until about 2 days ago when he started experiencing shortness of breath with exertion. He had no orthopnea. He had no bilateral lower extremities edema. He had no chest pain or chest discomfort. The chest x-ray showed findings consistent was congestive heart failure exacerbation. The EKG showed dual chamber pacing. The patient was started on Lasix IV. On follow-up with him today, he is feeling better. The shortness of breath has improved significantly and he is able to walk to the bathroom and coming back to his bed without being short of breath. He continues to denies any symptoms of chest pain or chest discomfort. The blood pressure is marginally low. The echocardiogram showed severe cardiomyopathy with an ejection fraction between 25-30%. I am going to decrease the dose of Lasix IV in to 40 mg daily. Continue the rest of the medical regimen which include, lisinopril, and aldactone. We'll continue monitor the patient for additional 24 hours with possible discharge home tomorrow. Objective - Vital Signs Vital signs: Vital Signs Temp 96.5 F L 03/13/16 08:00 Pulse 91 03/13/16 08:00 Resp 18 03/13/16 08:00 BP 93/59 03/13/16 08:00 Pulse Ox 94 L 03/13/16 08:00 Intake & Output 03/12/16 03/13/16 03/13/16 18:59 06:59 18:59 Intake Total 410 180 240 Output Total 600 300 100 Balance -190 -120 140 Weight 81.5 kg Intake: Oral 410 180 240 Output: Urine 600 300 100 Other: Voiding Method Toilet Toilet Urinal Urinal # Voids 1 1 1 - Constitutional General appearance: Present: no acute distress - Respiratory Respiratory: bilateral: CTA - Cardiovascular Rhythm: regular Heart sounds: normal: S1, S2 - Labs CBC & Chem 7: 03/13/16 06:02 03/13/16 06:00 Labs: Abnormal Lab Results - Last 24 Hours (Table) 03/13/16 03/13/16 Range/Units 06:00 06:02 RDW 17.3 H (11.5-15.5) % BUN 29 H (9-20) mg/dL Assessment and Plan Plan: Assessment #1 congestive heart failure secondary to systolic dysfunction #2 severe cardiomyopathy unknown if it's ischemic or nonischemic #3 status post permanent pacemaker implantation Plan #1 decrease the dose of Lasix in view of the marginally low blood pressure #2 continue monitor the kidney function and electrolytes and follow-up with the patient
[2016-03-13] MEDS: CALCIUM CARBONATE 500 MG CHEWABLE PO SCH (10:50)
[2016-03-13] MEDS: VIT A,C & E-LUTEIN-MINERALS 1 EACH TAB PO SCH (10:50)
[2016-03-13] MEDS: CHOLECALCIFEROL 1,000 UNIT TAB PO SCH (10:51)
[2016-03-13] MEDS: MULTIVITAMINS, THERA 1 EACH TAB PO SCH (11:57)
[2016-03-13] MEDS: FERROUS SULFATE 325 MG TAB PO SCH (11:57)
[2016-03-13 14:53] VITALS: BMI 23.1
[2016-03-13] MEDS: SPIRONOLACTONE 25 MG TAB PO SCH (15:19)
--- NOTE | 2016-03-13 17:05 | PN ---
DATE OF SERVICE: 03/12/2016 This 82-year-old gentleman was admitted with shortness of breath and congestive heart failure acute exacerbation is improving significantly but the patient still has severe cardiomyopathy, ejection fraction 20-25%. Cardiology following the patient closely. The patient is on IV Lasix twice daily at this time. No chest pain. No palpitations. No fever. On exam, alert and oriented times three. Pulse 100, blood pressure 117/72, respirations 18, temperature 96.6, pulse ox 98% on room air. HEENT: Conjunctivae normal. Oral mucosa moist. NECK: No jugular venous distention. CARDIOVASCULAR: S1, S2 muffled. RESPIRATORY: Breath sounds diminished at the bases. Bilateral scattered rhonchi and crackles. ABDOMEN: Soft, nontender. No mass palpable. LEGS: No edema. No swelling. CENTRAL NERVOUS SYSTEM: No focal motor deficits. LABS: WBC 6.7, hemoglobin is 12.9, BUN/creatinine noted. ASSESSMENT: 1. Congestive heart failure acute exacerbation with acute on chronic systolic dysfunction, ejection fraction 20-25%. 2. Severe cardiomyopathy. 3. Moderately dilated LA. 4. Mild to moderate aortic regurgitation, mild aortic sclerosis, mild to moderate mitral regurgitation and mild tricuspid regurgitation on the 2-D echo. 5. Atrial fibrillation. 6. History of chest pain, angina. 7. History of gastroesophageal reflux disease. 8. Hyperlipidemia. 9. History of dementia. 10. History of degenerative joint disease. 11. History of pneumonia. 12. History of bladder cancer. 13. History of prostate cancer. 14. History of cardiac catheterization. 15. History of umbilical hernia repair. 16. History of depression. 17. FULL CODE. RECOMMENDATIONS AND DISCUSSION: In this 82 -year-old gentleman who presented with multiple complex medical issues, we will monitor the patient closely. Continue the current medications. Continue symptomatic treatment. Otherwise, at this time I would recommend to continue with current medications, continue symptomatic treatment. Otherwise monitor fluid and electrolytes balance closely. Closely follow with cardiology. The patient is on Lasix twice daily. Further recommendations to follow.
--- NOTE | 2016-03-13 19:52 | PN ---
DATE OF SERVICE: 03/13/2016 PRESENTING COMPLAINT: Short of breath. INTERVAL HISTORY: Patient was admitted with CHF exacerbation, EF is 20% to 25%, feeling much better. Has been up in the hallway. No edema. is at the bedside. Did tolerate his meal. No obvious dizziness. Review of systems done for constitutional, cardiovascular, GI, pulmonary; relevant findings as above. Current medications are reviewed and include IV Lasix. On examination, temperature 97.6, pulse 77, respirations 18, blood pressure 85/59, pulse ox 95% on room air. GENERAL APPEARANCE: Sitting up in bed, not in distress. EYES: Pupils equal. Conjunctivae normal. NECK: JVD not raised. Mass not palpable. RESPIRATORY: Effort normal. LUNGS: Fair air entry. CARDIOVASCULAR: First and second sounds normal. No edema. ABDOMEN: Soft. Nontender. Liver and spleen not palpable. PSYCHIATRY: Alert and oriented x3. Mood and affect normal. INVESTIGATIONS: White count 6, hemoglobin 13.2, potassium 3.9. BUN 29, creatinine 1.04. ASSESSMENT: 1. Acute on chronic congestive heart failure exacerbation from systolic dysfunction; ejection fraction 20% to 25%. 2. Persistent atrial fibrillation. 3. Gastroesophageal reflux disease. 4. Hyperlipidemia. 5. Benign forgetfulness of the elderly. 6. Primary osteoarthritis in multiple joints, bilateral, chronic. 7. Hypothyroidism. 8. Chronic urinary incontinence. Wears Pull-ups. 9. Chronic pacemaker 10. Congestive heart failure, probably from underlying heart disease. PLAN: Patient is overall doing much better. Can be switched over to oral Lasix. Care was discussed with the patient and at the bedside. Questions were answered.
[2016-03-13] MEDS: ATORVASTATIN 10 MG TAB PO SCH (20:17)
[2016-03-13] MEDS: MELATONIN 3 MG TABLET PO SCH (20:20)
[2016-03-14 06:38] LABS: Anisocytosis Slight; Basophils # (A) 0.1 k/uL (0-0.2); Basophils % (A) 1 %; CH 28.7; CHCM 31.8; Eosinophils # (A) 0.2 k/uL (0-0.7); Eosinophils % (A) 3 %; HCT 41.6 % (39.0-53.0); HDW 2.46; HGB 13.2 gm/dL (13.0-17.5); Luc # (Auto) 0.24; Luc % (Auto) 4; Lymphocytes # (A) 1.7 k/uL (1.0-4.8); Lymphocytes % (A) 30 %; MCH 28.7 pg (25.0-35.0); MCHC 31.6 g/dL (31.0-37.0); MCV 90.8 fL (80.0-100.0); Mean Platelet Volume 8.6; Monocytes # (A) 0.5 k/uL (0-1.0); Monocytes % (A) 9 %; Neutrophils # (A) 3.2 k/uL (1.3-7.7); Neutrophils % (A) 54 %; RBC 4.59 m/uL (4.30-5.90); RDW 17.3 % (11.5-15.5); WBC 5.9 k/uL (3.8-10.6); WBC (Perox) 6.04
[2016-03-14 06:39] LABS: Anion Gap 8 mmol/L; Blood Urea Nitrogen 26 mg/dL (9-20); Calcium 9.4 mg/dL (8.4-10.2); Carbon Dioxide 31 mmol/L (22-30); Chloride 100 mmol/L (98-107); Glucose 90 mg/dL (74-99); Non-African American GFR(MDRD) 57 (>60 ml/min/1.73 sqM); Potassium 4.8 mmol/L (3.5-5.1); Sodium 139 mmol/L (137-145)
[2016-03-14] MEDS: PANTOPRAZOLE 40 MG TABLET PO SCH (06:43)
[2016-03-14] MEDS: CARVEDILOL 6.25 MG TAB PO SCH (06:43)
[2016-03-14] MEDS: LEVOTHYROXINE 75 MCG TAB PO SCH (06:44)
[2016-03-14] MEDS: SPIRONOLACTONE 25 MG TAB PO SCH (08:19)
[2016-03-14] MEDS: DONEPEZIL 10 MG TAB PO SCH (08:19)
[2016-03-14] MEDS: HEPARIN SODIUM,PORCINE 5,000 UNIT/ML 1 ML VIAL SQ SCH (08:20)
[2016-03-14] MEDS ORDERED: FUROSEMIDE 10 MG/ML 4 ML VIAL IV SCH (09:00)
[2016-03-14] MEDS: MULTIVITAMINS, THERA 1 EACH TAB PO SCH (11:55)
[2016-03-14] MEDS: CHOLECALCIFEROL 1,000 UNIT TAB PO SCH (11:55)
[2016-03-14] MEDS: FERROUS SULFATE 325 MG TAB PO SCH (11:55)
[2016-03-14] MEDS: CALCIUM CARBONATE 500 MG CHEWABLE PO SCH (11:55)
[2016-03-14 11:59] VITALS: BP 89/60; PULSE 89; TEMP 96.5
--- NOTE | 2016-03-14 12:48 | P.PN ---
Subjective Principal diagnosis: Systolic congestive heart failure This is an 85-year-old gentleman with history of prior pacemaker implantation, paroxysmal atrial fibrillation, who presented to the hospital mainly with symptoms of progressive shortness of breath. He was initiated on IV Lasix. Diuresed well. BUN 26, creatinine 1.2. Overall feeling much better today. Planning for discharge home today. Objective - Vital Signs Vital signs: Vital Signs Temp 96.5 F L 03/14/16 11:58 Pulse 89 03/14/16 11:58 Resp 18 03/14/16 11:58 BP 89/60 03/14/16 11:58 Pulse Ox 93 L 03/14/16 11:58 Intake & Output 03/13/16 03/14/16 03/14/16 18:59 06:59 18:59 Intake Total 840 100 120 Output Total 100 200 Balance 740 -100 120 Weight 81.5 kg 81.9 kg Intake: Oral 840 120 Other 100 Output: Urine 100 200 Other: Voiding Method Toilet Toilet Urinal Urinal # Voids 1 1 # Bowel Movements 1 0 - Exam PHYSICAL EXAMINATION: HEENT: Head is atraumatic, normocephalic. Pupils equal, round. Neck is supple. There is no elevated jugular venous pressure. HEART EXAMINATION: Heart S1 and S2 diastolic murmur is heard. CHEST EXAMINATION: Lungs are clear to auscultation and precussion. No chest wall tenderness is noted on palpation or with deep breathing. ABDOMEN: Soft, nontender. Bowel sounds are heard. No organomegaly noted. EXTREMITIES: 2+ peripheral pulses with trace evidence of peripheral edema and no calf tenderness noted. NEUROLOGIC patient is awake, alert and oriented -3. . - Labs CBC & Chem 7: 03/14/16 06:00 03/14/16 06:00 Labs: Abnormal Lab Results - Last 24 Hours (Table) 03/14/16 03/14/16 Range/Units 06:00 06:00 RDW 17.3 H (11.5-15.5) % Carbon Dioxide 31 H (22-30) mmol/L BUN 26 H (9-20) mg/dL Assessment and Plan (1) Systolic CHF, acute on chronic Status: Acute (2) Cardiomyopathy Status: Acute (3) Pacemaker Status: Acute Plan: From cardiology's perspective, we'll discontinue the IV Lasix and start the patient on Lasix 40 mg one tablet by mouth twice a day. Continue Coreg 6.25 mg twice a day, Lasix 40 mg by mouth twice a day, Lipitor 10 mg daily, lisinopril 2 -1/2 mg at at bedtime, and Aldactone 25 mg daily. A follow-up appointment will be made with Dr. Han in the office post discharge. Patient has a documented cardiomyopathy by echocardiogram which was performed here, unsure at this time whether it is ischemic or nonischemic. DNP note has been reviewed, I agree with a documented findings and plan of care. Patient was seen and examined.
[2016-03-14] MEDS ORDERED: LISINOPRIL 2.5 MG TAB PO SCH (21:00)
--- NOTE | 2016-03-16 07:41 | DS ---
DATE OF ADMISSION: 03/10/2016 DATE OF DISCHARGE: 03/14/2016 FINAL DIAGNOSES: 1. Acute on chronic congestive heart failure exacerbation from systolic dysfunction; ejection fraction 20% to 25%. 2. Persistent atrial fibrillation. 3. Gastroesophageal reflux disease. 4. Hyperlipidemia. 5. Benign forgetfulness of the elderly. 6. Primary osteoarthritis in multiple joints, bilateral, chronic. 7. Hypothyroidism. 8. Chronic urinary incontinence wears pull-ups. 9. Chronic pacemaker. HOSPITAL COURSE: This patient presented with CHF exacerbation, EF is 20% to 25%. During much better at the time of discharge. On examination, lungs are clear. CARDIOVASCULAR: Heart sounds are irregular. CONSULTATION: Dr. Hoffman from cardiology. DISCHARGE MEDICATIONS: 1. Calcium 1200 mg p.o. daily. 2. Vitamin D3, 2000 units p.o. daily. 3. Synthroid 75 mcg p.o. daily. 4. Mevacor 20 mg p.o. q.h.s. 5. Lutein 10 mg p.o. daily. 6. Multivitamin 1 tablet p.o. daily. 7. CoQ10, 400 mg p.o. daily. 8. PreserVision Areds 2 softgel daily. 9. Omeprazole 20 mg p.o. daily. 10. Tylenol 325 q.6 p.r.n. 11. Coreg 6.25 p.o. b.i.d. 12. Aricept 10 mg p.o. q.h.s. 13. Lasix 40 mg p.o. daily. 14. Zestril 2.5 mg q.h.s. 15. Melatonin 3 mg p.o. q.h.s. 16. Aldactone 25 mg a day. Follow with Dr. Hoffman on 03/21/16. Follow with Dr. Spivey on ( ). BMP in 3 days. Discharge planning more than 35 minutes.
== END 2016-03-14 12:56 | disposition home or self-care (01) | DRG 292 ==
LOC: EC 12:13 → 6SEL 16:29
PROVIDERS: ADMIT Hospitalist; ATTEND Hospitalist
DX: I11.0 Hypertensive heart disease with heart failure (principal); I48.1 Persistent atrial fibrillation; F03.90 Unspecified dementia, unspecified severity, without behavioral disturbance, psychotic disturbance, mood disturbance, and anxiety; I42.9 Cardiomyopathy, unspecified; I08.3 Combined rheumatic disorders of mitral, aortic and tricuspid valves; I50.23 Acute on chronic systolic (congestive) heart failure; D64.9 Anemia, unspecified; K21.9 Gastro-esophageal reflux disease without esophagitis; E78.5 Hyperlipidemia, unspecified; E03.9 Hypothyroidism, unspecified; M19.91 Primary osteoarthritis, unspecified site; R32 Unspecified urinary incontinence; Z95.0 Presence of cardiac pacemaker; Z87.11 Personal history of peptic ulcer disease; Z87.01 Personal history of pneumonia (recurrent); Z85.51 Personal history of malignant neoplasm of bladder; Z85.46 Personal history of malignant neoplasm of prostate; Z86.59 Personal history of other mental and behavioral disorders; Z98.42 Cataract extraction status, left eye; Z98.41 Cataract extraction status, right eye; Z79.82 Long term (current) use of aspirin; Z79.899 Other long term (current) drug therapy
CPT/HCPCS: 36415; 71020; 80048; 80053; 81001; 82550; 82553; 83735; 83880; 84484; 85025; 85379; 85610; 85730; 93005; 93306; 94640; 96374; 99291

== ENCOUNTER → 2017-01-12 | Outpatient (CLI) | payer MEDICARE ==
--- NOTE | 2017-01-12 16:31 | US ---
EXAMINATION TYPE: US kidneys/renal and bladder DATE OF EXAM: 01/12/2017 COMPARISON: CT urogram 2015, CT 2012 CLINICAL HISTORY: Staging Ca of bladder D49.4. Patient was unable to provide further medical history. EXAM MEASUREMENTS: Right Kidney: 11.4 x 5.3 x 4.8 cm Left Kidney: 11.0 x 5.6 x 4.8 cm Post Void Residual Volume: 252.9 mL Some mild wall thickening may be present. Significant urinary retention is evident during the exam. Right Kidney: lower cortical lateral area cluster of cysts = 1.0 x 0.9 x 1.3cm Left Kidney: upper pole simple cyst = 2.1 x 1.7 x 1.7cm Bladder: irregular areas on right bladder wall and may be related to patient history vs not fully dis tended bladder; smooth wall change noted lateral left posterior bladder; no vascularity was associate d with either areas of focus Bilateral Jets seen: Yes Normal Post Void Residual: no, and patient stated voided very limitedly IMPRESSION: 1. Bilateral renal cysts. 2. Irregular urinary bladder wall. 3. Significant urinary retention following voiding
== END | disposition home or self-care (01) ==
LOC: RADUSWWP 10:54
PROVIDERS: ATTEND Urology
DX: N28.1 Cyst of kidney, acquired (principal); R33.9 Retention of urine, unspecified; D49.4 Neoplasm of unspecified behavior of bladder
CPT/HCPCS: 76770

== ENCOUNTER → 2019-05-06 | Outpatient (CLI) | payer MEDICARE ==
--- NOTE | 2019-05-07 07:27 | US ---
EXAMINATION TYPE: US kidneys/renal and bladder DATE OF EXAM: 05/06/2019 COMPARISON: 01/12/2017 CLINICAL HISTORY: R94.4 Decreased renal function. gin EXAM MEASUREMENTS: Right Kidney: 10.6 x 4.2 x 5.1 cm Left Kidney: 11.0 x 4.6 x 5.7 cm *unable to appreciate cysts seen on previous ultrasound Right Kidney: No hydronephrosis or masses seen Left Kidney: No hydronephrosis or masses seen Bladder: irregular bladder wall multiple small diverticuli, finding seen on previous exam. Bilateral Jets seen: no There is no evidence for hydronephrosis at this point in time. No nephrolithiasis is seen. No mateus s are identified. The urinary bladder is anechoic. Bilateral ureteral jets are not seen. IMPRESSION: 1. No sonographic evidence of hydronephrosis or nephrolithiasis. 2. Diffusely irregular urinary bladder wall with trabeculated appearance and numerous small diverticu li.
== END | disposition home or self-care (01) ==
LOC: RADUSWWP 16:06
PROVIDERS: ATTEND Family Medicine
DX: N32.3 Diverticulum of bladder (principal); N32.89 Other specified disorders of bladder
CPT/HCPCS: 76770